=== PATIENT | female | born 1940 | race Caucasian/White ===

== ENCOUNTER 2023-05-27 09:07 | Observation (INO) | payer OTHER, MEDICARE ==
[~2023-05-27] VITALS: Ht 165.1 cm; Wt 66.4 kg
[2023-05-27] MEDS ORDERED: metoclopramide 5 mg/ml inj IV ONE (10:00)
[2023-05-27 10:09] LABS: BASOPHILS % (AUTO) 0.5 % (0-1); EOSINOPHILS % (AUTO) 0 % (0-6); HEMATOCRIT 44.3 % (35.0-45.0); HEMOGLOBIN 15.3 g/dl (12.0-16.0); LYMPHOCYTES # (AUTO) 0.4 X10'3 (1.1-4.8); LYMPHOCYTES % (AUTO) 7.3 % (21-51); MEAN CORPUSCULAR HEMOGLOBIN 31.6 PG (27.0-31.0); MEAN CORPUSCULAR HGB CONC 34.4 g/dL (33.0-36.5); MEAN CORPUSCULAR VOLUME 91.9 FL (78-98); MEAN PLATELET VOLUME 7.1 FL (7.4-10.4); MONOCYTES # (AUTO) 0.4 X10'3 (0-0.9); MONOCYTES % (AUTO) 7.4 % (2-12); NEUTROPHILS # (AUTO) 4.4 X10'3 (1.8-7.7); NEUTROPHILS % (AUTO) 84.8 % (42-75); PLATELET COUNT 253 X10'3 (140-440); RED BLOOD COUNT 4.83 X10'6 (4.20-5.60); RED CELL DISTRIBUTION WIDTH 12.8 % (11.5-14.5); WHITE BLOOD COUNT 5.2 X10'3 (4.5-11.0)
[2023-05-27 10:27] LABS: ALANINE AMINOTRANSFERASE 19 U/L (12-78); ALBUMIN 3.6 G/DL (3.4-5.0); ALKALINE PHOSPHATASE 69 IU/L (46-116); ANION GAP 13 (8-16); ASPARTATE AMINO TRANSFERASE 19 U/L (10-37); BILIRUBIN,TOTAL 0.4 MG/DL (0.1-1.0); BLOOD UREA NITROGEN 9 MG/DL (7-18); BUN/CREATININE RATIO 12.7 (10.0-20.0); CALCIUM 8.6 MG/DL (8.5-10.1); CHLORIDE 90 MMOL/L (99-107); CREATININE 0.71 MG/DL (0.40-0.90); GLUCOSE 149 MG/DL (70-104); LIPASE 64 U/L (73-393); POTASSIUM 3.5 MMOL/L (3.5-5.1); SODIUM 125 MMOL/L (135-145); TOTAL CARBON DIOXIDE 21.9 MMOL/L (24-32); TOTAL PROTEIN 7.2 G/DL (6.4-8.2); eGFR 78 ML/MIN
[2023-05-27] MEDS ORDERED: normal saline 1000ML IV soln IVB ONE (11:25)
[2023-05-27] MEDS ORDERED: acetaminophen 325mg tablet PO ONE (12:20)
[2023-05-27] MEDS ORDERED: amox tr/potassium clavulanate 875/125mg TAB PO ONE (12:20)
[2023-05-27 14:11] LABS: CLARITY,URINE CLOUDY (Clear); COLOR,URINE YELLOW (Yellow); GLUCOSE, URINE NEGATIVE (Neg); KETONES,URINE 40 mg/dl (Neg); LEUKOCYTE ESTERASE ,URINE LARGE (Neg); NITRITES, URINE NEGATIVE (Neg); OCCULT BLOOD,URINE TRACE-INTACT (Neg); PROTEIN,URINE NEGATIVE (Neg); UROBILINOGEN,URINE 0.2 E.U/dL (0.2-1.0)
[2023-05-27 14:13] LABS: UA COLLECTION TYPE CLN CATCH MIDSTREAM
[2023-05-27 14:35] LABS: SQUAMOUS EPITHELIAL CELL,UR MANY /LPF (FEW)
[2023-05-27 14:36] LABS: BACTERIA,URINE 2+ /HPF (Neg); WBC CLUMPS,URINE MANY /HPF (NEGATIVE); WBC,URINE 50-100 /HPF (0-4)
[2023-05-27 14:37] LABS: RBC,URINE 0-2 /HPF (0-2)
[2023-05-27] MEDS ORDERED: acetaminophen 325mg tablet PO PRN (15:40)
[2023-05-27] MEDS ORDERED: ondansetron/PF 4mg/2ml inj IV PRN (15:40)
[2023-05-27] MEDS ORDERED: potassium Cl 40MEQ/1/2NS 520ml 520 ML IV PRN (15:40)
[2023-05-27] MEDS ORDERED: magnesium 4gm in 100ml NS 100 ML IV PRN (15:40)
[2023-05-27] MEDS ORDERED: magnesium Cl slow-release 64mg tablet PO PRN (15:40)
[2023-05-27] MEDS ORDERED: magnesium 2GM in 50ml NS 50 ML IV PRN (15:40)
[2023-05-27] MEDS ORDERED: potassium Cl 20 mEq SR tablet PO PRN ×2 (15:40)
[2023-05-27] MEDS ORDERED: CefTRIAXone 2gm/D5W 50ml BAG 50 ML IV ONE (15:50)
[2023-05-27] MEDS: normal saline 1000ml 1,000 ML IV SCH (15:56)
[2023-05-27] MEDS: benzocaine/menthol oral lozeng 1 EACH BOX MM SCH ×2 (16:00→19:55)
[2023-05-27] MEDS: acetaminophen 325mg tablet PO SCH (16:00)
[2023-05-27] MEDS ORDERED: RIVA10TA PO (16:54)
[2023-05-27] MEDS ORDERED: CARV6.253 PO (16:54)
[2023-05-27] MEDS ORDERED: REMDESIVIR INJ 100 MG in normal saline 100ml IV soln 100 ML IV SCH (17:20)
[2023-05-27] MEDS: sodium chloride 1gm tablet PO SCH ×2 (17:55→23:00)
[2023-05-27 18:02] LABS: C-REACTIVE PROTEIN 1.77 MG/DL (0.0-0.5); LACTATE DEHYDROGENASE 220 U/L (81-234)
[2023-05-27] MEDS ORDERED: REMDESIVIR 200 MG in NS 100ml IVPB Loading dose IV ONE (19:30)
[2023-05-27] MEDS: carvedilol 6.25mg tablet PO SCH (19:42)
[2023-05-27] MEDS: rivaroxaban 10mg tablet PO SCH (19:43)
[2023-05-27] MEDS ORDERED: carvedilol 6.25mg tablet PO SCH (20:00)
[2023-05-27] MEDS ORDERED: temazepam 15mg capsule PO PRN (21:00)
[2023-05-28] MEDS: acetaminophen 325mg tablet PO SCH ×3 (00:58→17:49)
[2023-05-28] MEDS: dexamethasone 4mg/ml inj IV SCH ×3 (00:58→17:17)
--- NOTE | 2023-05-28 01:48 | NUR ---
Patient in room ORTHO 4008. I have received report from VANE Lee and had the opportunity to ask questions and assume patient care.
[2023-05-28 01:50] VITALS: BP 170/73
[2023-05-28] MEDS: HALLS - SOOTHE MENTHOL 1.8 MG cough drop LOZENGE MM SCH ×5 (01:50→20:00)
[2023-05-28] MEDS ORDERED: lisinopril 10 MG tablet PO ONE (02:10)
[2023-05-28 05:31] LABS: BASOPHILS % (AUTO) 0.2 % (0-1); EOSINOPHILS % (AUTO) 0 % (0-6); HEMATOCRIT 41.9 % (35.0-45.0); HEMOGLOBIN 14.2 g/dl (12.0-16.0); LYMPHOCYTES # (AUTO) 0.7 X10'3 (1.1-4.8); LYMPHOCYTES % (AUTO) 9.1 % (21-51); MEAN CORPUSCULAR HEMOGLOBIN 31.4 PG (27.0-31.0); MEAN CORPUSCULAR VOLUME 92.3 FL (78-98); MEAN PLATELET VOLUME 7.6 FL (7.4-10.4); MONOCYTES # (AUTO) 0.4 X10'3 (0-0.9); MONOCYTES % (AUTO) 5.6 % (2-12); NEUTROPHILS # (AUTO) 6.1 X10'3 (1.8-7.7); NEUTROPHILS % (AUTO) 85.1 % (42-75); PLATELET COUNT 247 X10'3 (140-440); RED BLOOD COUNT 4.54 X10'6 (4.20-5.60); RED CELL DISTRIBUTION WIDTH 13.1 % (11.5-14.5); WHITE BLOOD COUNT 7.2 X10'3 (4.5-11.0)
[2023-05-28 06:00] VITALS: BP 112/42
[2023-05-28 06:04] LABS: ALANINE AMINOTRANSFERASE 19 U/L (12-78); ALKALINE PHOSPHATASE 58 IU/L (46-116); ANION GAP 13 (8-16); ASPARTATE AMINO TRANSFERASE 24 U/L (10-37); BILIRUBIN,TOTAL 0.2 MG/DL (0.1-1.0); BLOOD UREA NITROGEN 12 MG/DL (7-18); BUN/CREATININE RATIO 13.6 (10.0-20.0); CALCIUM 8.1 MG/DL (8.5-10.1); CHLORIDE 99 MMOL/L (99-107); CREATININE 0.88 MG/DL (0.40-0.90); GLUCOSE 119 MG/DL (70-104); POTASSIUM 3.6 MMOL/L (3.5-5.1); SODIUM 134 MMOL/L (135-145); eGFR 61 ML/MIN
--- NOTE | 2023-05-28 06:10 | NUR ---
Patient in room ORTHO 4008. I have received report from Janine CIFUENTES and had the opportunity to ask questions and assume patient care.
--- NOTE | 2023-05-28 06:21 | NUR ---
Problems reprioritized. Patient report given, questions answered & plan of care reviewed with MICHAEL Solares.
[2023-05-28] MEDS: lactose-reduced food (Ensure Enlive) - 237ml bottle PO SCH ×2 (08:00→18:00)
[2023-05-28] MEDS ORDERED: rivaroxaban 10mg tablet PO SCH (08:00)
[2023-05-28] MEDS: carvedilol 6.25mg tablet PO SCH ×2 (09:32→20:00)
[2023-05-28] MEDS: sodium chloride 1gm tablet PO SCH ×4 (09:33→21:34)
[2023-05-28 10:00] VITALS: BP 97/50
--- NOTE | 2023-05-28 11:15 | NUR ---
Patient daughter Jeny called for an update. Jeny stated that she believes that she gave COVID to her mom. Daughter is very concerned about her mother. Daughter recently loss her to cancer and now lives in [place] with her mother. They are in [place] because daughter sold her house and is staying in a hotel until her mom is discharged. Once discharged they will travel back home. Patient states that she is still weak but needs to get up and move around. Patient states that she takes care of herself and still drives. She is a very sweet lady.
--- NOTE | 2023-05-28 11:24 | NUR ---
PAGER ID: [phone] MESSAGE: [phone] Agustín, R- Patient is from [place] and dtr is staying in a hotel waiting to see if patient will be discharged. They are wanting to go home. Pls advise? [phone]
--- NOTE | 2023-05-28 13:20 | NUR ---
Agree with MARBLE CUTTER assessment.
--- NOTE | 2023-05-28 14:56 | NUR ---
PAGER ID: [phone] MESSAGE: [id number]- Agustín, R- Patient IV went bad and patient is refusing another one. She is saying she is going home tomorrow. Is it ok to leave IV out? Pls advise? Sergey Goodman [phone]
--- NOTE | 2023-05-28 15:59 | NUR ---
PAGER ID: [phone] MESSAGE: [phone]-Agustín, R- patient has diarrhea and would like to have an antidiarrheal medication. pls advise? TOLU whiting [phone]
--- NOTE | 2023-05-28 16:25 | NUR ---
Dr. Womack placed a medication for diarrhea.
[2023-05-28] MEDS ORDERED: loperamide 2mg capsule PO PRN (16:45)
[2023-05-28] MEDS ORDERED: loperamide 2mg capsule PO ONE (17:05)
--- NOTE | 2023-05-28 18:29 | NUR ---
Problems reprioritized. Patient report given, questions answered & plan of care reviewed with Larissa CIFUENTES.
[2023-05-28 19:00] VITALS: BP 117/58
[2023-05-28] MEDS: rivaroxaban 10mg tablet PO SCH (20:00)
[2023-05-28] MEDS: REMDESIVIR 100 MG in NS 100ml IVPB IV SCH (20:00)
[2023-05-28] MEDS: normal saline 1000ml 1,000 ML IV SCH (21:33)
[2023-05-28 22:00] VITALS: BP 135/45
[2023-05-29] MEDS: HALLS - SOOTHE MENTHOL 1.8 MG cough drop LOZENGE MM SCH ×4 (00:15→12:01)
[2023-05-29] MEDS: acetaminophen 325mg tablet PO SCH ×2 (00:15→07:31)
[2023-05-29] MEDS: dexamethasone 4mg/ml inj IV SCH ×2 (00:15→07:51)
[2023-05-29 02:00] VITALS: BP 133/60
[2023-05-29 06:00] VITALS: BP 152/70
[2023-05-29 06:24] LABS: BASOPHILS % (AUTO) 0.1 % (0-1); EOSINOPHILS % (AUTO) 0 % (0-6); HEMATOCRIT 41.4 % (35.0-45.0); HEMOGLOBIN 14.4 g/dl (12.0-16.0); LYMPHOCYTES # (AUTO) 0.8 X10'3 (1.1-4.8); LYMPHOCYTES % (AUTO) 12.2 % (21-51); MEAN CORPUSCULAR HEMOGLOBIN 32.4 PG (27.0-31.0); MEAN CORPUSCULAR HGB CONC 34.7 g/dL (33.0-36.5); MEAN CORPUSCULAR VOLUME 93.6 FL (78-98); MONOCYTES # (AUTO) 0.4 X10'3 (0-0.9); MONOCYTES % (AUTO) 6.6 % (2-12); NEUTROPHILS # (AUTO) 5.2 X10'3 (1.8-7.7); NEUTROPHILS % (AUTO) 81.1 % (42-75); PLATELET COUNT 283 X10'3 (140-440); RED BLOOD COUNT 4.43 X10'6 (4.20-5.60); RED CELL DISTRIBUTION WIDTH 13.1 % (11.5-14.5); WHITE BLOOD COUNT 6.4 X10'3 (4.5-11.0)
--- NOTE | 2023-05-29 06:24 | NUR ---
Problems reprioritized. Patient report given, questions answered & plan of care reviewed with ross Parks.
--- NOTE | 2023-05-29 06:27 | NUR ---
Problems reprioritized. Received report from VANE Dias; questions answered & plan of care reviewed.
[2023-05-29 06:34] LABS: ALANINE AMINOTRANSFERASE 21 U/L (12-78); ALBUMIN 3.2 G/DL (3.4-5.0); ALKALINE PHOSPHATASE 61 IU/L (46-116); ANION GAP 13 (8-16); ASPARTATE AMINO TRANSFERASE 27 U/L (10-37); BILIRUBIN,TOTAL 0.2 MG/DL (0.1-1.0); BLOOD UREA NITROGEN 24 MG/DL (7-18); BUN/CREATININE RATIO 22.6 (10.0-20.0); CALCIUM 8.8 MG/DL (8.5-10.1); CHLORIDE 106 MMOL/L (99-107); CREATININE 1.06 MG/DL (0.40-0.90); GLUCOSE 143 MG/DL (70-104); POTASSIUM 3.5 MMOL/L (3.5-5.1); SODIUM 138 MMOL/L (135-145); TOTAL CARBON DIOXIDE 19.5 MMOL/L (24-32); TOTAL PROTEIN 6.5 G/DL (6.4-8.2); eGFR 49 ML/MIN
[2023-05-29] MEDS: lactose-reduced food (Ensure Enlive) - 237ml bottle PO SCH ×2 (07:31→13:11)
[2023-05-29] MEDS: sodium chloride 1gm tablet PO SCH (07:31)
[2023-05-29] MEDS: carvedilol 6.25mg tablet PO SCH (07:31)
[2023-05-29] MEDS: normal saline 1000ml 1,000 ML IV SCH (08:56)
--- NOTE | 2023-05-29 09:27 | NUR ---
Problems reprioritized. Care plan reviewed. Following Kasey RODRIGUEZ. All IV medication completed by Alannah CIFUENTES BSN.
[2023-05-29 10:00] VITALS: BP 111/71
--- NOTE | 2023-05-29 12:34 | NUR ---
Order from Dr. Womack to give a dose of Remdesiver now. Pharmacy called to retime 1600 dose. Patient will be discharge today to family.
[2023-05-29] MEDS ORDERED: REMDESIVIR 100 MG in NS 100ml IVPB IV SCH (12:41)
[2023-05-29] MEDS: REMDESIVIR 100 MG in NS 100ml IVPB IV SCH (13:03)
--- NOTE | 2023-05-29 14:45 | NUR ---
Patient discharged accompanied by her daughter. Patient has no acute distress, breathing WNL, LS clear. Patient is stable upon discharge. Belongings sent home with patient of what was present among admission. Patient/ daughter participated in d/c instructions along with a hangout of [employer]. Patient wheeled down to [facility] by wheelchair and left in a private vehicle. IV d/c'd from the AC to the left ac, cannula intact.
== END 2023-05-29 14:25 | disposition home or self-care (01) ==
LOC: ER 14:20 → ED HOLD 15:50 → EDBEDREQ 23:05 → ORTHO 4S 05-28 01:14
PROVIDERS: ADMIT Internal Medicine; ATTEND Family Medicine
DX: U07.1 COVID-19 (principal); E87.1 Hypo-osmolality and hyponatremia; J90 Pleural effusion, not elsewhere classified; E87.8 Other disorders of electrolyte and fluid balance, not elsewhere classified; J20.9 Acute bronchitis, unspecified; I10 Essential (primary) hypertension; Z86.718 Personal history of other venous thrombosis and embolism; Z79.899 Other long term (current) drug therapy
CPT/HCPCS: 36415; 70360; 71046; 80053; 81001; 83605; 83615; 83690; 84145; 85025; 86140; 87040; 87081; 87502; 87503; 87811; 96361; 96365; 96366; 96367; 96375; 96376; 99284; G0378; J0696; J1100; J2765; J3490; J7030; A4615